=== PATIENT | female | born 1935 | race Caucasian/White ===

== ENCOUNTER → 2017-08-22 | Outpatient (CLI) | payer OTHER ==
[~2017-08-22] VITALS: Ht 162.6 cm; Wt 70.9 kg
[~2017-08-22] MED LIST: ALEVE220 MG PO; ANTIVERT12.5 MG PO; ASPIR 8181 MG PO; ASPIRIN81 M2 PO; B COMPLEX1 EAC1; CARDIZEM CD120 MG PO; CARDIZEM CD300 MG PO; CARTIA XT120 M1 PO; CENTRUM SILVER1 EAC4 PO; CRANBERRY500 MG PO; CRESTOR10 MG; FLEXERIL PO; GABAPENTIN 100100 MG PO; HYDROCHLOROTHIA25 M1 PO; HYDROCODON-ACE1 EACH PO; HYDROCODONE-AP1 EAC6 PO; LIPITOR20 MG PO; LIPITOR80 MG PO; LISINOPRIL20 MG PO; LISINOPRIL40 MG PO; MAGOX 400400 MG PO; MOBIC15 MG PO; NIACIN 100MG T100 M1 PO; PLAVIX 75 MG TA75 M1 PO; PRINIVIL20 MG PO; SYNTHROID100 MCG PO; SYNTHROID88 MCG PO; TUMS PO; VALACYCLOVIR500 MG PO; VALTREX 500 MG500 M1 PO; VITAMIN D400 UNIT PO; VITAMIN E400 UNIT PO; VOLTAREN GEL 1100 G1 TOP; ZETIA10 MG PO
--- NOTE | ~2017-08-22 | HPC ---
[facility] [address] [place] [place] [address] PAIN MANAGEMENT CONSULTATION Name: TENISHAHERBIE KEBEDELG ANN Room #: REG VIRGIL Temple#: [id number] Admission: 08/22/17 Attend Phys: Elkin Goode DO Discharge: Date of : 35 Report #: [id number] THIS REPORT FOR: //name// CC: Katherin Goode The patient is an 82-year-old female, last seen in pain clinic nearly 2 years ago, October of 2015. She was given epidural injections in 2010 and 2014. Last visit in 2015, we did not do an epidural injection as patient was on Plavix, status post CVA. Returns to pain clinic today with a new complaint. She was seen for approximately 30 minutes today. She notes that status post CVA she "bumps into things." She notes she has pain in the right shoulder, which is becoming more and more problematic. She states it has been present for about 3 months. It is worse with activity. She sleeps on the right side. This exacerbates this right shoulder pain. She has been using "icy hot" and Tylenol with some efficacy. 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 She notes pain is a 5 on a VAS, seems to be exacerbated with activity. Really does not radiate much below the forearm. REVIEW OF SYSTEMS: Gone over with the patient, medication list was reconciled. Again, history of CVA for which she takes Plavix, hypertension for which she takes Zestril and Cardizem, Zetia for dyslipidemia, Synthroid for hypothyroidism. PHYSICAL EXAMINATION: Reveals an 82-year-old female, BMI is 26.8 kilograms per meter squared. Vital signs stable as noted on the EMR. In the interval since we did last see her in 2015, she had right breast cancer, treated with a lumpectomy and 12 radiation therapies. Cervical range of motion is full. Upper extremity strength is diminished with pain, exacerbated with right triceps resistance. Pain with passive range of motion of the right shoulder. Hand grasp is symmetric. Deep tendon reflexes are preserved in the upper extremity. Heart is regular and rhythmical with a grade 2/6 systolic ejection murmur. No carotid bruits are noted. Tender over the AC joint. ASSESSMENT: Symptomatic degenerative joint disease, right shoulder. The patient with prior history of cerebrovascular accident, lumbar radiculopathy and sacroiliac mediated pain. RECOMMENDATIONS: 1. We will trial Voltaren gel topically for the right shoulder. 2. Follow up in 7 days for reevaluation. If this does not afford adequate relief, we will move forward with right shoulder injection under fluoroscopy. [address] [address] PAIN MANAGEMENT CONSULTATION Name: LG TREVINO Room #: REG VIRGIL Temple#: [id number] Admission: 08/22/17 Attend Phys: Elkin Goode DO Discharge: Date of : 35 Report #: [id number] We talked about risks, benefits of doing joint injections while anticoagulated, literature studies including [place] journal of medicine, September 2011, notes safety of arthrocentesis and joint injections and the patient is receiving anticoagulants at therapeutic levels. The patient was discharged in good and stable condition after approximately 30 minute visit, 50% of time spent counseling the patient. Follow up for right shoulder arthrocentesis and steroid injection under fluoroscopy if indicated. <ELECTRONICALLY SIGNED> By: Elkin Goode DO 08/24/17 1417 1630 2058 Elkin Goode DO /nt
[2017-08-22 10:25] VITALS: BP 125/78
== END ==
LOC: PAIN 06:57
DX: M18.0 Bilateral primary osteoarthritis of first carpometacarpal joints (principal); M19.011 Primary osteoarthritis, right shoulder

== ENCOUNTER → 2017-09-05 | Outpatient (CLI) | payer OTHER ==
[~2017-09-05] VITALS: Ht 162.6 cm; Wt 70.9 kg
--- NOTE | ~2017-09-05 | HPC ---
[facility] [place] [address] [place] [address] PAIN MANAGEMENT CONSULTATION Name: LG TREVINO ALIYAH Room #: REG VIRGIL Paolo.#: [id number] Admission: 09/05/17 Attend Phys: Yony Beltrán MD Discharge: Date of : 35 Report #: [id number] THIS REPORT FOR: //name// CC: Katherin Goode DO DATE OF SERVICE: 08/30/2017 DATE OF REGISTRATION: 08/30/2017 Followup visit for bilateral thumb pain and right shoulder pain. I am seeing the patient today in Dr. Goode's absence. He has the flu. She kept her appointment today for an anticipated shoulder injection that was discussed at her last visit. Dr. Goode on 08/22/2017 ordered x-rays of the right shoulder and bilateral thumbs to evaluate for DJD. Those films were reviewed with the patient, which show in deed that there are processes in the metacarpal carpal joints bilaterally consistent with her pain. She has osteophytes and sclerosis there. On that shoulder there is evidence of moderate degenerative changes of the acromioclavicular joint without bony abnormality. This is also consistent with a mild to moderate arthritis like condition. PQRS assessment is performed and it shows that she does indeed have arthropathy and arthritis as described. She is taking a low dose of opioid medication hydrocodone, which was provided for her by Dr. Goode and she is not requesting more of that today. Her maximum morphine mg equivalency per day does not exceed 15, a very low dose. She has hypertension, under treatment by her primary care physician and does not appear to be a fall risk. She does not smoke nor drink alcohol. PHYSICAL EXAMINATION: Reveals tenderness bilaterally at the metacarpal carpal joint of each thumb with palpable sclerosis. There is pain in the right shoulder with abduction, internal and external rotation. She cannot reach much more than about 6 inches above her head without increasing pain and impingement. Tenderness located there. IMPRESSION: 1. Osteoarthritis involving metacarpal carpal joints as well as evidence of interphalangeal joint narrowing and osteophyte in multiple joints. 2. Osteoarthritis, right shoulder. RECOMMENDATIONS: [facility] [address] [place] [address] PAIN MANAGEMENT CONSULTATION Name: LG TREVINO [facility] Room #: REG [facility] Maverick#: [id number] Admission: 09/05/17 Attend Phys: Yony Beltrán MD Discharge: Date of : 35 Report #: [id number] 1. Continue with Voltaren gel in both locations. 2. Shoulder injection. The patient was placed in sitting position, skin was prepped with ChloraPrep. A 25-gauge needle was gently advanced into the shoulder joint without resistance. After negative aspiration, I gently injected 4 mL of 0.5% bupivacaine mixed with 40 mg of triamcinolone. She tolerated the procedure well. She was observed for a short time. Due to her use of Plavix, there is some risk of bruising or bleeding. She is told to observe that and to any concerns come back to the clinic or call. Followup visit planned with Dr. Goode in his return to the office on an as needed basis for medication management. She may be a candidate for injection of the metacarpal carpal drugs as well. <ELECTRONICALLY SIGNED> By: Yony Beltrán MD 10/24/17 1408 1219 2206 Yony Beltrán MD /nt
[2017-09-05 11:17] VITALS: BP 140/76
== END | disposition home or self-care (01) ==
LOC: PAIN 06:50
DX: M19.011 Primary osteoarthritis, right shoulder (principal)

== ENCOUNTER → 2017-09-30 | Outpatient (CLI) | payer OTHER ==
[~2017-09-30] VITALS: Ht 165.1 cm; Wt 69.8 kg
--- NOTE | ~2017-09-30 | P ---
[facility] [place] [address] [place] [address] PROCEDURE REPORT Name: LG TREVINO ALIYAH Room #: REG [facility] M..#: [id number] Admission: 09/30/17 Attend Phys: Francis Call MD Discharge: Date of : 35 Report #: [id number] THIS REPORT FOR: //name// CC: Francis Sheikh MD BRIEF HISTORY: The patient is an 82-year-old woman with rectal bleeding and diarrhea earlier this year. POSTOPERATIVE DIAGNOSES: 1. Multiple colon polyps. 2. Diverticulosis coli, sigmoid colon. MEDICATIONS: Deep sedation with propofol per Anesthesia. SPECIMENS: 1. Ascending colon polyp. 2. Cecal polyps x 4. ESTIMATED BLOOD LOSS: 3 mL. PROCEDURE: Colonoscopy to cecum and terminal ileum with biopsy. FINDINGS: Prior to propofol sedation, procedure of upper endoscopy was discussed with the patient as well as potential risks and its complications. She indicates she understands and desires to proceed. DESCRIPTION OF PROCEDURE: With the patient in left lateral decubitus position, digital examination was completed which revealed no abnormalities. Subsequently, the Olympus video colonoscope was introduced in the rectum and advanced under direct vision to the cecum. Done with minimal difficulty. Cecum was identified by the ileocecal valve and appendiceal orifice. I was able to visualize the distal segment of terminal ileum, which was inspected and noted to be unremarkable. At that point, the scope was slowly withdrawn and careful circumferential views obtained including retroflex in the ascending colon. As we withdrew the scope, there were noted to be 4 diminutive polyps in the cecum, removed by biopsy. In the ascending colon, another diminutive polyp was seen and removed by biopsy. A small diverticulum was seen in the proximal colon. There was noted to be mild to moderate disease in the sigmoid colon. As we withdrew the scope, the prep was excellent. No additional polyps were seen. The mucosa was normal down to the rectum. No abnormalities were seen in the rectum. Upon retroflexion, no abnormalities were seen. Scope was withdrawn. The patient tolerated the procedure well. CONDITION OF THE PATIENT UPON DISCHARGE: Following procedure, the patient drowsy, aroused, conversant and will be discharged home when fully ambulatory. [facility] [address] [place] [address] PROCEDURE REPORT Name: LG TREVINO ALIYAH Room #: REG [facility]..#: [id number] Admission: 09/30/17 Attend Phys: Francis Call MD Discharge: Date of : 35 Report #: [id number] INSTRUCTIONS TO THE PATIENT AND FAMILY AT THE TIME OF DISCHARGE: Four small polyps were seen and removed as noted above. If three or more polyps are adenomatous, she may wish to consider followup colon exam in 3 years even at her current age. However, if only 1 or 2 are adenomas, then there is likely to be minimal benefit from continued routine surveillance. As far as recent rectal bleeding, no abnormalities were seen. I suspect she had a self-limited process, which had resolved. At this point, she is to follow up with Dr. Katherin Sheikh. Return to see me as needed. Withdrawal time from the cecum was approximately 11 minutes. <ELECTRONICALLY SIGNED> By: Francis Call MD 10/02/17 1408 1131 2113 Francis Call MD /nt
--- NOTE | ~2017-09-30 | P ---
[facility] [place] [address] [place] [address] PROCEDURE REPORT Name: LG TREVINO ALIYAH Room #: REG [facility] Paolo.#: [id number] Admission: 09/30/17 Attend Phys: Francis Call MD Discharge: Date of : 35 Report #: [id number] THIS REPORT FOR: //name// CC: Francis Sheikh BRIEF HISTORY: The patient is an 82-year-old woman with intermittent dysphagia for solids such as dry consistencies and bread. PREOPERATIVE DIAGNOSIS: Solid food dysphagia. POSTOPERATIVE DIAGNOSES: 1. Small hiatus hernia. 2. Intermittent solid food dysphagia. MEDICATIONS: Deep sedation with propofol per anesthesia. SPECIMEN: Biopsies of gastritis. ESTIMATED BLOOD LOSS: 3 mL. PROCEDURE: EGD with biopsy, Valentine dilation. FINDINGS: Prior to propofol sedation, procedure of upper endoscopy discussed with the patient of all potential risks and its complications. She indicates she understands and desires to proceed. DESCRIPTION OF PROCEDURE: With the patient in left lateral decubitus position, the Fuji video endoscope was inserted in the cervical esophagus under direct vision without difficulty. Examination of this organ throughout its entire length revealed normal esophageal mucosa. No ulcers or erosions were seen. There was no evidence of esophagitis or Rivera mucosa. A definite ring or stricture was not seen. A small hiatus hernia of no more than 2 cm was intermittently seen. Mucosa and hernia was normal. Scope was advanced in the stomach, was examined on end view as well as retroflexed views. There was a pattern of diffuse gastritis throughout the entire stomach with patchy erythema. No ulcers, erosions or bleeding lesions were seen. Upon retroflexion, no mass lesions were seen. The pylorus, duodenal bulb and postbulbar duodenal sweep were inspected and noted to be unremarkable. At that point, the scope was withdrawn and careful circumferential views confirmed the above findings. The patient tolerated the procedure well. Biopsies ____ gastritis. Due to symptoms of dysphagia, she was dilated with passage of 50-Croatian Valentine dilator. There was no resistance. CONDITION OF THE PATIENT UPON DISCHARGE: Following procedure, the patient [facility] [address] [place] [address] PROCEDURE REPORT Name: LG TREVINO [facility] Room #: REG [facility].#: [id number] Admission: 09/30/17 Attend Phys: Francis Call MD Discharge: Date of : 35 Report #: [id number] drowsy and prepared for colonoscopy. INSTRUCTIONS TO THE PATIENT AND FAMILY AT THE TIME OF DISCHARGE: I did not see definite stricturing. She is empirically dilated due to symptoms of dysphagia. She will return for dilation on an as needed basis. We will follow up on biopsy of the gastric mucosa and make further recommendations as needed. She will return to care of Dr. Katherin Sheikh. <ELECTRONICALLY SIGNED> By: Francis Call MD 10/02/17 1408 1100 2206 Francis Call MD /rney
--- NOTE | ~2017-09-30 | S ---
[facility] [address] [place] [address] SURGICAL PATH RPT PROCEDURE Name: KECIA TREVINO ALIYAH Room #: REG VIRGIL Boone.#: [id number] Admission: 09/30/17 Date of : 35 Discharge: Report #: [id number] Path Case #: [id number] PATHOLOGY REPORT COLLECTION DATE: 09/30/2017 RECEIVED DATE: 09/30/2017 SUBMITTING PHYS: Dr. Francis Call OTHER PHYS: Dr. Katehrin Sheikh SPECIMEN(S) RECEIVED: A.Gastric B.Ascending polyp C.Cecal polyp x4 * * * * * * * * * * * * FINAL DIAGNOSIS: A. "Gastric", biopsy: - Gastric mucosa with mild to moderate chronic active gastritis, mild activity. - No convincing H. pylori organisms identified by immunohistochemical stain (block A1); control reacted appropriately. - See comment. B. "Ascending polyp", biopsy: - Tubular adenoma; no high grade dysplasia. C. "Cecal polyp x 4", biopsy: - Tubular adenoma; no high grade dysplasia. (CLW:db; 10/03/2017) COMMENT: While the pattern of inflammation is suggestive of an H. pylori infection, no convincing organisms are identified on the immunohistochemical stain. Correlation with clinical history, endoscopic findings and potentially additional microbiology / laboratory data is recommended. PATHOLOGIST: Ondina Evangelista M.D. REPORT ELECTRONICALLY SIGNED BY: Ondina Evangelista M.D. DATE/TIME: 10/03/2017 22:27 * * * * * * * * * * * * GROSS PATHOLOGY: A. Received in formalin labeled "Kecia Trevino, gastric BX, rule out H. pylori," are 4 segments of rachel soft tissue measuring 1.5 x 1.0 x 0.3 cm in aggregate dimensions and ranging from 0.3 to 0.4 cm in maximum dimension. The specimen is submitted entirely in cassette A1. B. Received in formalin labeled "Kecia Trevino, polyp ascending [facility] [place] [address] SURGICAL PATH RPT PROCEDURE Name: KECIA TREVINO ALIYAH Room #: REG [facility]..#: [id number] Admission: 09/30/17 Date of : 35 Discharge: Report #: [id number] Path Case #: [id number] colon BX," is a segment of rachel soft tissue measuring 0.4 cm in maximum dimension. The specimen is submitted entirely in cassette B1. C. Received in formalin labeled "Kecia Trevino, cecal polyp BX 4," are 5 segments of rachel soft tissue measuring 1.6 x 1.3 x 0.3 cm in aggregate dimensions and ranging from 0.2 to 0.5 cm in maximum dimension. The specimen is submitted entirely in cassette C1. (TSD; 09/30/2017) CLINICAL HISTORY: Pre-OP DX: Dysphagia, rectal bleeding Post-OP DX: Gastritis, colon polyps INITIAL CPT CODE(S): A; 48661, 11982 B; 10125 C; 84570 Professional services performed by [facility] at [facility] [address], [place] [address] Technical services performed by [facility] at [address] [place] [address], [address], [place] [address]. [facility] [address] [place] [address] PHONE: [phone] DIRECTOR: Rene Delgado M.D. * * * END OF REPORT * * *
== END | disposition home or self-care (01) ==
LOC: GI 08:09
DX: D12.2 Benign neoplasm of ascending colon (principal); D12.0 Benign neoplasm of cecum; K57.30 Diverticulosis of large intestine without perforation or abscess without bleeding; K29.50 Unspecified chronic gastritis without bleeding; R13.12 Dysphagia, oropharyngeal phase; K44.9 Diaphragmatic hernia without obstruction or gangrene; I10 Essential (primary) hypertension; E03.9 Hypothyroidism, unspecified; K21.9 Gastro-esophageal reflux disease without esophagitis; Z85.3 Personal history of malignant neoplasm of breast; Z85.850 Personal history of malignant neoplasm of thyroid; Z90.710 Acquired absence of both cervix and uterus; Z90.49 Acquired absence of other specified parts of digestive tract; Z98.890 Other specified postprocedural states; Z86.73 Personal history of transient ischemic attack (TIA), and cerebral infarction without residual deficits; Z79.82 Long term (current) use of aspirin; Z88.2 Allergy status to sulfonamides; Z88.8 Allergy status to other drugs, medicaments and biological substances
CPT/HCPCS: 62110; 62900

== ENCOUNTER 2018-09-14 11:20 | Emergency (ER) | payer OTHER ==
[~2018-09-14] VITALS: Ht 160 cm; Wt 68.0 kg
[2018-09-14 11:38] LABS: POC CA IONIZED 4.8 mg/dL (4.5-5.3); POC CREATININE 1.1 mg/dL (0.6-1.3); POC HEMOGLOBIN 13.9 g/dL (12.0-15.0); POC POTASSIUM 4.2 mmol/L (3.5-5.1)
[2018-09-14 11:44] LABS: ABSOLUTE NEUTROPHILS 5.1 thou/uL (1.4-8.2); BASOPHILS 0.7 % (0.0-2.0); EOSINOPHILS 1.7 % (0.0-3.0); HEMATOCRIT 40.5 % (37.0-47.0); HEMOGLOBIN 13.9 gm/dL (12.0-15.0); LYMPHOCYTES 33.1 % (24.0-44.0); MCH 31.8 pg (26.0-34.0); MCHC 34.2 g/dL (28.0-37.0); MCV 92.9 fL (80.0-100.0); MONOCYTES 10.3 % (1.0-8.0); PLATELET COUNT 234 thou/uL (150-400); POLYS 54.2 % (36.0-66.0); RBC 4.36 mil/uL (4.20-5.00); RDW 13.6 % (10.5-14.5); WBC 9.4 thou/uL (4.0-11.0)
[2018-09-14] MEDS ORDERED: ESTRADIOL 1 MG T1 M1 PO (11:46)
[2018-09-14 11:51] LABS: INR 1.1; PROTIME 11.4 Seconds (9.3-11.4)
[2018-09-14 11:56] LABS: ANION GAP 11 mmol/L (7-16); BUN 13 mg/dL (7-18); CALCIUM 9.5 mg/dL (8.5-10.1); CHLORIDE 101 mmol/L (98-107); CO2 28 mmol/L (21-32); CREATININE 1.1 mg/dL (0.6-1.0); GLUCOSE 126 mg/dL (74-106); POTASSIUM 4.1 mmol/L (3.5-5.1); SODIUM 140 mmol/L (136-145)
[2018-09-14 12:05] LABS: TROPONIN-I <0.06 ng/mL (<0.06)
[2018-09-14 13:43] VITALS: BP 146/70
[2018-09-14] MEDS ORDERED: CARTIA XT120 M1 PO (14:07)
[2018-09-14] MEDS ORDERED: CO Q-10100 MG PO (14:08)
[2018-09-14] MEDS ORDERED: FLAXSEED OIL1000 MG PO (14:08)
--- NOTE | 2018-09-15 10:42 | EKG ---
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: : 1935 Requested By: Mali Quijano Order Number: [id number] MD: Teddy Nunez Measurements Intervals [place] Rate: 59 P: 66 [place]: 178 QRS: 34 QRSD: 103 T: 59 QT: 452 QTc: 448 Interpretive Statements Sinus rhythm RSR' in V1 or V2, probably normal variant Early transition Nonspecific ST-T wave changes Compared to ECG 07/25/2015 06:25:55 no significant changes Electronically Signed On 09-15-2018 10:42:18 SALES PROJECT ENGINEER by Teddy Nunez [email or web address] ��������������������������������������������� <ELECTRONICALLY SIGNED> ���������������������������������������� By: Teddy Nunez MD ��������������������������������������������� 09/15/18 1042 1117 111 Teddy Nunez MD /EPI
== END 2018-09-14 14:22 | disposition home or self-care (01) ==
LOC: ER 11:20
PROVIDERS: Student in an Organized Health Care Education/Training Program
DX: R55 Syncope and collapse (principal); I10 Essential (primary) hypertension; K21.9 Gastro-esophageal reflux disease without esophagitis; E78.5 Hyperlipidemia, unspecified; Z85.3 Personal history of malignant neoplasm of breast; Z90.49 Acquired absence of other specified parts of digestive tract; Z90.710 Acquired absence of both cervix and uterus; E89.0 Postprocedural hypothyroidism; Z88.1 Allergy status to other antibiotic agents; Z88.2 Allergy status to sulfonamides

== ENCOUNTER → 2018-11-02 | Outpatient (CLI) | payer OTHER ==
[~2018-11-02] MED LIST changes: +CO Q-10100 MG PO; +ESTRADIOL 1 MG T1 M1 PO; +FLAXSEED OIL1000 MG PO
--- NOTE | 2018-11-02 09:09 | 2DMMODE ---
[facility] [place] [address] 2 D/M-MODE ECHOCARDIOGRAM Name: LG TREVINO ALIYAH Room #: REG [facility]#: [id number] ������������� Admission: 11/02/18 ������������� Attend Phys: Sinan Morley MD Discharge: ��� ������������� ��� Date of : 35 Date of Service: 11/02/18 0909 �� Report #: [id number] �������� ��������������������������������������������[id number] THIS REPORT FOR: //name// APPROVED REPORT Study performed: 11/02/2018 07:59:33 EXAM: Comprehensive 2D, Doppler, and color-flow Echocardiogram Patient Location: Out-Patient Status: routine BSA: 1.75 HR: 75 bpm BP: 132/75 mmHg Rhythm: NSR Other Information Study Quality: Good Indications Syncope Hypertension/HDD 2D Dimensions RVDd: 24.51 mm IVSd: 13.59 (7-11mm) LVOT Diam: 17.53 (18-24mm) LVDd: 29.68 mm PWd: 11.62 (7-11mm) Ascending Ao: 31.88 (22-36mm) LVDs: 19.58 (25-40mm) Aortic Root: 28.28 mm IVC: 19.00 mm Volumes Left Atrial Volume (Systole) Single Plane 4CH: 26.97 mL Single Plane 2CH: 35.84 mL LA ESV Index: 19.00 mL/m2 Aortic Valve AoV Peak Live.: 1.46 m/s AO Peak Gr.: 9.39 mmHg LVOT Max P.75 mmHg LVOT Max V: 1.30 m/s MARA Vmax: 2.15 cm2 AI Vmax: 3.87 m/s AI [place]: 1.94 m/s2 AI PHT: 589.40 ms [facility] [address] [place] [address] 2 D/M-MODE ECHOCARDIOGRAM Name: LG TREVINO BANNER Room #: REG [facility].#: [id number] ������������� Admission: 11/02/18 ������������� Attend Phys: Sinan Morley MD Discharge: ��� ������������� ��� Date of : 35 Date of Service: 11/02/18 0909 �� Report #: [id number] �������� ��������������������������������������������[id number] Mitral Valve E/A Ratio: 0.7 MV Decel. Time: 233.24 ms MV E Max Live.: 0.83 m/s MV A Live.: 1.13 m/s MV PHT: 67.64 ms IVRT: 133.79 ms Pulmonary Valve PV Peak Live.: 1.05 m/s PV Peak Gr.: 4.41 mmHg Pulmonary Vein P Vein S: 0.56 m/s P Vein A: 0.23 m/s P Vein D: 0.41 m/s P Vein A Dur.: 110.7 msec P Vein S/D Ratio: 1.37 Tricuspid Valve TR Peak Live.: 2.46 m/s RAP Estimate: 5.00 mmHg TR Peak Gr.: 24.26 mmHg PA Pressure: 29.00 mmHg Left Ventricle The left ventricle is normal size. Mild concentric left ventricular hypertrophy. The left ventricular systolic function is normal. The left ventricular ejection fraction is within the normal range. LVEF is 60-65%. Mild diastolic dysfunction is present (impaired relaxation pattern). Right Ventricle The right ventricle is normal size. The right ventricular systolic function is normal. Atria The left atrium size is normal. The right atrium size is normal. Aortic Valve Aortic valve is mildly calcified. Mild aortic regurgitation. There is no aortic valvular stenosis. Mitral Valve Mild mitral annular calcification. Mitral valve leaflets are mildly thickened. Mild mitral regurgitation. No evidence of mitral valve stenosis. Tricuspid Valve [facility] [address] [place] [address] 2 D/M-MODE ECHOCARDIOGRAM Name: LG TREVINO BANNER [facility] [id number] ������������� Admission: 11/02/18 ������������� Attend Phys: Sinan Morley MD Discharge: ��� ������������� ��� Date of : 35 Date of Service: 11/02/18 0909 �� Report #: [id number] �������� ��������������������������������������������[id number] The tricuspid valve is normal in structure. Mild tricuspid regurgitation. PAP is estimated at 29 mmHg. Pulmonic Valve Pulmonic valve is not well visualized. Great Vessels The aortic root is normal in size. The ascending aorta is normal in size. IVC is normal in size and collapses >50% with inspiration. Pericardium There is no pericardial effusion. <Conclusion> The left ventricle is normal size. Mild concentric left ventricular hypertrophy. The left ventricular systolic function is normal. Mild diastolic dysfunction is present (impaired relaxation pattern). The right ventricle is normal size. The left atrium size is normal. Aortic valve is mildly calcified. Mild aortic regurgitation. Mild mitral annular calcification. Mitral valve leaflets are mildly thickened. Mild mitral regurgitation. Mild tricuspid regurgitation. PAP is estimated at 29 mmHg. ��������������������������������������������� <ELECTRONICALLY SIGNED> ���������������������������������������� By: Sinan Morley MD ��������������������������������������������� 11/02/18908 8 8 Sinan Morley MD /INF
== END ==
LOC: CV 07:40
DX: I08.3 Combined rheumatic disorders of mitral, aortic and tricuspid valves (principal); E78.5 Hyperlipidemia, unspecified; I10 Essential (primary) hypertension; Z88.1 Allergy status to other antibiotic agents; Z88.2 Allergy status to sulfonamides; Z91.09 Other allergy status, other than to drugs and biological substances; Z79.899 Other long term (current) drug therapy

== ENCOUNTER 2019-01-29 08:35 | Emergency (ER) | payer OTHER ==
[~2019-01-29] VITALS: Ht 165.1 cm; Wt 69.8 kg
[2019-01-29 09:23] LABS: ANION GAP 11 mmol/L (7-16); BUN 16 mg/dL (7-18); CALCIUM 9.4 mg/dL (8.5-10.1); CHLORIDE 102 mmol/L (98-107); CO2 25 mmol/L (21-32); CREATININE 1.1 mg/dL (0.6-1.0); GLUCOSE 136 mg/dL (74-106); POTASSIUM 4.4 mmol/L (3.5-5.1)
[2019-01-29 09:34] LABS: ALBUMIN 3.8 g/dL (3.4-5.0); LIPASE 120 U/L (73-393); MAGNESIUM 2.3 mg/dL (1.8-2.4); SGOT 31 U/L (15-37); SGPT 25 U/L (30-65); TOTAL BILIRUBIN 0.8 mg/dL (<0.1-1.0); TOTAL PROTEIN 7.7 g/dL (6.4-8.2); TROPONIN-I <0.06 ng/mL (<0.06)
[2019-01-29 09:35] LABS: SODIUM 138 mmol/L (136-145)
[2019-01-29 10:32] LABS: ABSOLUTE NEUTROPHILS 8.6 thou/uL (1.4-8.2); BASOPHILS 0.6 % (0.0-2.0); EOSINOPHILS 0.7 % (0.0-3.0); HEMATOCRIT 40.4 % (37.0-47.0); HEMOGLOBIN 13.4 gm/dL (12.0-15.0); LYMPHOCYTES 12.9 % (24.0-44.0); MCH 30.6 pg (26.0-34.0); MCHC 33.3 g/dL (28.0-37.0); MONOCYTES 8.3 % (1.0-8.0); PLATELET COUNT 202 thou/uL (150-400); POLYS 77.5 % (36.0-66.0); RBC 4.38 mil/uL (4.20-5.00); RDW 13.8 % (10.5-14.5); WBC 11.1 thou/uL (4.0-11.0)
[2019-01-29] MEDS ORDERED: ONDANSETRON ODT8 MG PO (11:05)
[2019-01-29 11:24] VITALS: BP 139/61
[2019-01-29 11:43] LABS: URINE BILIRUBIN NEGATIVE (Negative); URINE BLOOD NEGATIVE (Negative); URINE CLARITY CLEAR; URINE COLOR YELLOW; URINE GLUCOSE-RANDOM* NEGATIVE (Negative); URINE KETONES NEGATIVE (Negative); URINE NITRITE-REFLEX NEGATIVE (Negative); URINE PROTEIN (DIPSTICK) NEGATIVE (Negative); URINE UROBILINOGEN 0.2 E.U./dl (0.2-1.0)
[2019-01-29 11:44] LABS: URINE LEUKOCYTES-REFLEX 1+ (Negative)
[2019-01-29 11:55] LABS: AMORPHOUS URATES Moderate /LPF (None Seen); CASTS None Seen /LPF (None Seen); URINE WBC-REFLEX 6-15 Few /HPF (0-5)
[2019-01-29 11:56] LABS: BACTERIA-REFLEX 1-9 Few /HPF (None Seen); CRYSTALS None Seen /LPF (None Seen); URINE RBC None Seen /HPF (0-2)
[2019-01-29 12:05] LABS: SQUAMOUS 4-10 Moderate /LPF (0-3)
--- NOTE | 2019-01-29 12:15 | EKG ---
[place] [address] [facility] [place] [address] ELECTROCARDIOGRAM REPORT Name: ANJALI TREVINO Room #: DEP [place]ver[place]#: [id number] ������������������ Admission: 01/29/19 ������������������ Attend Phys: Discharge: 01/29/19 ������������������ Date of : 35 Report #: [id number] ����������������������������������������������������������������� [id number] THIS REPORT FOR: //name// [facility] ED Test Date: 2019-01-29 Test Time: 08:50:48 Pat Name: ANJALI TREVINO Department: Room: Gender: F Speech Communication Instructor: kf : 1935 Requested By: Anatoliy Queen Order Number: [id number] MD: Devyn Pittman Measurements Intervals [place] Rate: 59 P: 52 [place]: 176 QRS: 13 QRSD: 103 T: 56 QT: 459 QTc: 455 Interpretive Statements Sinus rhythm RSR' in V1 or V2, probably normal variant Compared to ECG 09/14/2018 11:17:55 No significant changes Electronically Signed On 01-29-2019 12:15:24 CDT by Devyn Pittman [email or web address] ��������������������������������������������� <ELECTRONICALLY SIGNED> ���������������������������������������� By: Devyn Pittman MD ��������������������������������������������� 01/29/19 1215 0850 0850 MD STEVEN Guillaume
== END 2019-01-29 11:31 | disposition home or self-care (01) ==
LOC: ER 08:35
PROVIDERS: Emergency Medicine
DX: R42 Dizziness and giddiness (principal); R55 Syncope and collapse; R19.7 Diarrhea, unspecified; R11.2 Nausea with vomiting, unspecified; I10 Essential (primary) hypertension; K21.9 Gastro-esophageal reflux disease without esophagitis; E03.9 Hypothyroidism, unspecified; E78.5 Hyperlipidemia, unspecified; Z88.2 Allergy status to sulfonamides; Z91.048 Other nonmedicinal substance allergy status; Z88.1 Allergy status to other antibiotic agents; Z90.11 Acquired absence of right breast and nipple; Z85.3 Personal history of malignant neoplasm of breast; Z98.890 Other specified postprocedural states; Z90.710 Acquired absence of both cervix and uterus; Z90.49 Acquired absence of other specified parts of digestive tract

== ENCOUNTER → 2019-11-26 | Outpatient (CLI) | payer OTHER ==
[~2019-11-26] MED LIST changes: +ONDANSETRON ODT8 MG PO
== END ==
LOC: SJCVC 10:09
PROVIDERS: ATTEND Internal Medicine Cardiovascular Disease
DX: I45.10 Unspecified right bundle-branch block (principal); R55 Syncope and collapse; I10 Essential (primary) hypertension; E78.00 Pure hypercholesterolemia, unspecified; I63.9 Cerebral infarction, unspecified; K21.9 Gastro-esophageal reflux disease without esophagitis; E78.5 Hyperlipidemia, unspecified; Z86.73 Personal history of transient ischemic attack (TIA), and cerebral infarction without residual deficits; Z82.49 Family history of ischemic heart disease and other diseases of the circulatory system; Z79.899 Other long term (current) drug therapy; Z79.82 Long term (current) use of aspirin

== ENCOUNTER → 2020-11-25 | Outpatient (CLI) | payer OTHER | LOC: SJCVCIMAG 09:43 | PROVIDERS: ATTEND Internal Medicine Cardiovascular Disease | DX: I08.3 Combined rheumatic disorders of mitral, aortic and tricuspid valves (principal); R55 Syncope and collapse; I10 Essential (primary) hypertension; I44.0 Atrioventricular block, first degree; E78.00 Pure hypercholesterolemia, unspecified; R60.9 Edema, unspecified; K21.9 Gastro-esophageal reflux disease without esophagitis; Z90.49 Acquired absence of other specified parts of digestive tract; Z90.710 Acquired absence of both cervix and uterus; Z88.8 Allergy status to other drugs, medicaments and biological substances; Z79.82 Long term (current) use of aspirin; Z79.899 Other long term (current) drug therapy ==

== ENCOUNTER → 2021-05-13 | Outpatient (CLI) | payer OTHER ==
[~2021-05-13] MED LIST changes: +CLOPIDOGREL75 MG PO; +FUROSEMIDE 20 M20 MG PO; +TRAZODONE HCL50 MG PO; +XARELTO20 MG PO
== END ==
LOC: SJCVC 09:27
PROVIDERS: ATTEND Internal Medicine Cardiovascular Disease
DX: I48.91 Unspecified atrial fibrillation (principal); J90 Pleural effusion, not elsewhere classified; I50.9 Heart failure, unspecified; I11.0 Hypertensive heart disease with heart failure; E78.00 Pure hypercholesterolemia, unspecified; K21.9 Gastro-esophageal reflux disease without esophagitis; E03.9 Hypothyroidism, unspecified; Z88.5 Allergy status to narcotic agent; Z88.8 Allergy status to other drugs, medicaments and biological substances; Z88.1 Allergy status to other antibiotic agents; Z79.899 Other long term (current) drug therapy

== ENCOUNTER 2021-05-14 11:51 | Inpatient (IN) | payer OTHER ==
[~2021-05-14] VITALS: Ht 165.1 cm; Wt 66.7 kg
[~2021-05-14 11:51] MED LIST changes: -CLOPIDOGREL75 MG PO; -FUROSEMIDE 20 M20 MG PO; -TRAZODONE HCL50 MG PO; -XARELTO20 MG PO
[2021-05-14 11:56] VITALS: BP 113/78
[2021-05-14 12:37] LABS: ABSOLUTE NEUTROPHILS 5.5 thou/uL (1.4-8.2); BASOPHILS 0.6 % (0.0-2.0); EOSINOPHILS 1.3 % (0.0-3.0); HEMATOCRIT 41.8 % (37.0-47.0); HEMOGLOBIN 13.6 gm/dL (12.0-15.0); LYMPHOCYTES 15.6 % (24.0-44.0); MCH 30.7 pg (26.0-34.0); MCHC 32.5 g/dL (28.0-37.0); MCV 94.4 fL (80.0-100.0); MONOCYTES 8.1 % (1.0-8.0); PLATELET COUNT 277 thou/uL (150-400); POLYS 74.4 % (36.0-66.0); RBC 4.43 mil/uL (4.20-5.00); RDW 14.5 % (10.5-14.5); WBC 7.4 thou/uL (4.0-11.0)
[2021-05-14 12:51] LABS: CALCIUM 8.7 mg/dL (8.5-10.1); CREATININE 1.1 mg/dL (0.6-1.0)
[2021-05-14 12:53] LABS: POTASSIUM 4.5 mmol/L (3.5-5.1)
[2021-05-14 13:02] LABS: ALBUMIN 3.6 g/dL (3.4-5.0); TOTAL BILIRUBIN 1.5 mg/dL (0.2-1.0); TOTAL PROTEIN 7.7 g/dL (6.4-8.2)
[2021-05-14 14:43] VITALS: BP 121/73
[2021-05-14] MEDS ORDERED: CLOPIDOGREL75 MG PO (14:47)
[2021-05-14] MEDS ORDERED: TRAZODONE HCL50 MG PO (14:47)
--- NOTE | 2021-05-14 15:47 | EKG ---
[place] [address] [facility] [place] [address] ELECTROCARDIOGRAM REPORT Name: ANJALI TREVINO Room #: 170-8 ADM IN M.R.#: [id number] Admission: 05/14/21 Attend Phys: Beto Downs MD Discharge: Date of : 35 Report #: [id number] [facility] ED Test Date: 2021-05-14 Test Time: 12:03:52 Pat Name: ANJALI TREVINO Department: Room: 170 Gender: F Hot Header Operator: MAIKEL : 1935 Requested By: Cait Phelps Order Number: [id number] MD: Jeff Suh Measurements Intervals [place] Rate: 127 P: ID: QRS: 9 QRSD: 88 T: 60 QT: 349 QTc: 508 Interpretive Statements Atrial fibrillation RSR' in V1 or V2, probably normal variant Prolonged QT interval Compared to ECG 01/29/2019 08:50:48 Sinus rhythm no longer present Electronically Signed On 05-14-2021 15:47:25 CDT by Jeff Suh [email or web address] <ELECTRONICALLY SIGNED> By: Jeff Suh MD, [facility] 05/14/21 1547 1203 1203 Jeff Suh MD, FACC /EPI
[2021-05-14 16:29] LABS: FOLIC ACID 54.6 ng/mL (8.6-58.9)
[2021-05-14] MEDS ORDERED: XARELTO20 MG PO (16:57)
[2021-05-14] MEDS ORDERED: FUROSEMIDE 20 M20 MG PO (16:58)
[2021-05-14 19:31] VITALS: BP 122/83
[2021-05-14 20:25] VITALS: BP 111/54
[2021-05-14 20:30] VITALS: BP 114/64
[2021-05-14 22:00] VITALS: BP 109/60
[2021-05-15 00:01] VITALS: BP 111/68
--- NOTE | 2021-05-15 02:03 | NUR ---
PT ADMITTED FROM ER AROUND 2014, ALERT AND ORIENTED, DENIES CP OR SOA, AFIB ON TELE WITH HR IN THE 70S, CARDIZEM TITRATED TO 5ML/HR, ORDERS NOTED FOR THE ONETIME DOSE OF CARDIZEM, FINISH CARPENTER NOTIFIED, ORDERS RECEIVED TO CONTINUE CARDIZEM, BP STABLE, PT 02SATS IN THE UPPER 80, ON RA, PT PUT ON 2L NC, TYL GIVEN FOR L. SHOULDER PAIN WITH RELIEVE, ADMISSION ASSESSMENT, EDUCATIONA AND HX COMPLETED, NO DISTRESS AT THIS TIME, WILL CONTINUE TO MONITOR HR AND BP PER POC
[2021-05-15 03:36] VITALS: BP 137/71
[2021-05-15 05:09] LABS: ABSOLUTE NEUTROPHILS 5.9 thou/uL (1.4-8.2); BASOPHILS 0.3 % (0.0-2.0); EOSINOPHILS 1.6 % (0.0-3.0); HEMATOCRIT 34.2 % (37.0-47.0); LYMPHOCYTES 19.8 % (24.0-44.0); MCHC 32.3 g/dL (28.0-37.0); MONOCYTES 9.9 % (1.0-8.0); PLATELET COUNT 254 thou/uL (150-400); POLYS 68.4 % (36.0-66.0); RBC 3.95 mil/uL (4.20-5.00); RDW 14.6 % (10.5-14.5); WBC 8.7 thou/uL (4.0-11.0)
[2021-05-15 05:17] LABS: HEMOGLOBIN 11.1 gm/dL (12.0-15.0)
[2021-05-15 05:18] LABS: MCV 86.5 fL (80.0-100.0)
[2021-05-15 07:11] VITALS: BP 126/64
[2021-05-15 08:19] LABS: CALCIUM 8.9 mg/dL (8.5-10.1); CREATININE 1.2 mg/dL (0.6-1.0); POTASSIUM 3.8 mmol/L (3.5-5.1)
[2021-05-15 11:40] VITALS: BP 90/50
--- NOTE | 2021-05-15 12:17 | 2DMMODE ---
[facility] [place] [address] 2 D/M-MODE ECHOCARDIOGRAM Name: LG TREVINO Room #: 211-P ADM IN M.R.#: [id number] Admission: 05/14/21 Attend Phys: Beto Downs MD Discharge: Date of : 35 Report #: [id number] THIS REPORT FOR: cc: Katherin Sheikh MD, Michelle R. MD Park, Jin S. MD ~ APPROVED REPORT Study performed: 05/15/2021 10:30:01 EXAM: Comprehensive 2D, Doppler, and color-flow Echocardiogram Patient Location: Bedside Room #: 211 Status: routine BSA: 1.77 HR: 104 bpm BP: 126/64 mmHg Rhythm: Atrial Fibrillation Other Information Study Quality: Good Indications Congestive Heart Failure Atrial Fibrillation Hypertension/HDD 2D Dimensions RVDd: 37.11 mm IVSd: 12.33 (7-11mm) LVOT Diam: 16.30 (18-24mm) LVDd: 33.40 mm PWd: 11.58 (7-11mm) Ascending Ao: 28.22 (22-36mm) LVDs: 23.31 (25-40mm) Left Atrium: 30.31 (27-40mm) Aortic Root: 27.63 mm IVC: 22.00 mm Volumes Left Atrial Volume (Systole) Single Plane 4CH: 58.57 mL Single Plane 2CH: 53.69 mL LA ESV Index: 35.00 mL/m2 Aortic Valve AoV Peak Live.: 1.46 m/s AO Peak Gr.: 8.57 mmHg LVOT Max P.06 mmHg [facility] [address] [place] [address] 2 D/M-MODE ECHOCARDIOGRAM Name: LG TREVINO Room #: 211-P [facility]#: [id number] Admission: 05/14/21 Attend Phys: Beto Downs MD Discharge: Date of : 35 Report #: [id number] LVOT Max V: 1.01 m/s MARA Vmax: 1.44 cm2 Pulmonary Valve PV Peak Live.: 0.91 m/s PV Peak Gr.: 3.29 mmHg Tricuspid Valve TR Peak Live.: 2.65 m/s TR Peak Gr.: 28.05 mmHg PA Pressure: 38.00 mmHg Left Ventricle The left ventricle is normal size. Mild concentric left ventricular hypertrophy. The left ventricular systolic function is normal. The left ventricular ejection fraction is within the normal range. LVEF is 55%. This study is not technically sufficient to allow evaluation of the LV diastolic function due to atrial fibrillation. Right Ventricle The right ventricle is normal size. The right ventricular systolic function is normal. Atria Left atrium is dilated. Right atrium is dilated. Aortic Valve The aortic valve is normal in structure. The Aortic valve is sclerotic. Mild aortic regurgitation. There is no aortic valvular stenosis. Mitral Valve The mitral valve is normal in structure. There is mitral annular calcification. Mild to moderate mitral regurgitation. No evidence of mitral valve stenosis. Tricuspid Valve The tricuspid valve is normal in structure. There is mild to moderate tricuspid regurgitation.Estimated PAP 34 mmHg. There is mild pulmonary hypertension. Pulmonic Valve The pulmonary valve is normal in structure. Trace pulmonic regurgitation. Great Vessels The aortic root is normal in size. IVC is dilated and collapses [facility] [address] [place] [address] 2 D/M-MODE ECHOCARDIOGRAM Name: LG TREVINO Room #: [facility] ADM IN M.R.#: [id number] Admission: 05/14/21 Attend Phys: Beto Downs MD Discharge: Date of : 35 Report #: [id number] <50% with inspiration. Pericardium There is no pericardial effusion. <Conclusion> The left ventricle is normal size. Mild concentric left ventricular hypertrophy. The left ventricular systolic function is normal. The right ventricle is normal size. Left atrium is dilated. Right atrium is dilated. Mild aortic regurgitation. Mild to moderate mitral regurgitation. There is mild to moderate tricuspid regurgitation.Estimated PAP 34 mmHg. <ELECTRONICALLY SIGNED> By: Sinan Morley MD 05/15/21 1217 16 1217 Sinan Morley MD /INF
[2021-05-15 14:33] LABS: APTT 28.1 Seconds (24.5-32.8); INR 1.26; PROTIME 13.6 Seconds (10.5-12.1)
--- NOTE | 2021-05-15 15:46 | NUR ---
Case opened to follow for dc planning. Pt admitted with newly dx AFIB and being treated for CHF as well. Pt on cardezem gtt with improved heart rate. Pt currently on 2lnc o2 but does not have it at home. The pt lives at home with her spouse and son. She has hx of cva but functions independently and drives. She uses her rollator walker when outside the home. No assistive device inside. She has a split level home with four steps to enter and 6 up to main living and 6 up to bedroom/bath. Her pcp is Dr. Katherin Sheikh. PT/OT evaluations today with recommendations for possible hh referral pending her progress. No weekend dc anticipated. Will reassess for hh referral and home o2 early next week.
[2021-05-15 16:57] LABS: BF NUCLEATED CELLS 471 /mm3; BF RBC 634 /mm3
[2021-05-15 17:17] LABS: CLARITY CLEAR; COLOR YELLOW; TOTAL VOLUME 60 mL
--- NOTE | 2021-05-15 19:02 | NUR ---
PATIENT IS A/OX4 ABLE TO MAKE NEEDS KNOWN. VSS AFEBRILE. C/O SHOULDER PAIN WHICH IS WELL MANAGED WITH TYLENOL. AFIB ON MONITOR. CARDIZEM DRIP DC THIS AFTERNOON. THORACENTESIS THIS AFTERNOON WITH OUT DIFFICULTY. PT/OT EVALUATED
[2021-05-15 19:46] VITALS: BP 1001/75
[2021-05-15 20:41] LABS: BF NEUTROPHILS 7 %; SOURCE THORACENTESIS
[2021-05-15 20:42] LABS: BF MACROPHAGE 7 %
[2021-05-16 02:13] LABS: CALCIUM 8.9 mg/dL (8.5-10.1); CREATININE 1.4 mg/dL (0.6-1.0); POTASSIUM 3.6 mmol/L (3.5-5.1)
--- NOTE | 2021-05-16 04:47 | NUR ---
RECEIVED PATIENT AT 1900H.PATIENT IS ALERT AND ORIENTED X4.NO COMPLIANS OF PAIN.NOT IN DISTRESS.STILL AFIB ON THE MONITOR, RATE IS FLUCTUATING BUT MOSTLY LESS THAN 100.NO COMPLAINS OF PAIN.NOT IN DISTRESS.ALL NEEDS ATTENDED.TO CONTINOUSLY MONITOR.
[2021-05-16 05:21] VITALS: BP 96/52
[2021-05-16 08:10] LABS: SOURCE THORACENTESIS
[2021-05-16 09:38] VITALS: BP 117/65
[2021-05-16 13:02] VITALS: BP 103/75
[2021-05-16 16:00] VITALS: BP 117/44
[2021-05-16 20:03] VITALS: BP 117/62
[2021-05-16 23:48] VITALS: BP 114/74
[2021-05-17] VITALS (7 sets, daily range): BP systolic 103–135; BP diastolic 46–78
--- NOTE | 2021-05-17 07:35 | NUR ---
RECEIVED THE PATIENT AT 1900H.PATIENT IS ALERT AND ORIENTED X4.ON ROOM AIR BREATHING SPONTANEOUSLY.WITH ONGOING AMIODARONE DRIP ORDERED.AT 0415H AM, PATIENT WENT TO COMMODE TO URINATE, PATIENT FELT LIGHTHEADED, PER THE DIRECTOR OF INSTRUCTIONAL TECHNOLOGY WHO ASSISTED THE PATIENT, PATIENT WAS NOT RESPONDING TO HER.HR WAS ON THE 30'S ON THE MONITOR.UPON ARRIVAL TO THE PATIENT'S ROOM, WE PLACED PATIENT BACK ON THE BED AND PATIENT WAS ALREADY RESPONDING WITH GOOD PULSES.TURNED OFF AMIODARONE PER ER DOCTOR AND REGULATORY INTERN DUE TO BRADYCARDIA EPISODE.VITALS CHECKED AFTER THE EPISODE AND WAS WITHIN NORMAL RANGE.KEPT PATIENT IN THE BED.FALL PREVENTION MEASURES MAINTAINED.
--- NOTE | 2021-05-18 03:50 | NUR ---
PT HAS BEEN SLEEPING MOST OF THE NIGHT. RESPIRATIONS EVEN AND UNLABORED. SHE DENIED ANY PAIN OR SOA. AFIB WITH HR 70S-80S MOST OF THE SHIFT. FALL PRECAUTIONS IN PLACE. PROGRESSING TOWARD POC GOALS. WILL MONITOR FURTHER.
[2021-05-18 04:44] VITALS: BP 98/55
--- NOTE | 2021-05-18 07:27 | EKG ---
[address] [employer] [address] ELECTROCARDIOGRAM REPORT Name: LG TREVINO Room #: 211-P ADM IN M.R.#: [id number] Admission: 05/14/21 Attend Phys: Beto Downs MD Discharge: Date of : 35 Report #: [id number] [facility] Test Date: 2021-05-17 Test Time: 08:33:03 Pat Name: LG TREVINO Department: Room: 211 P Gender: F Hospitality Manager: JEfrain : 1935 Requested By: Izabela Calloway Order Number: [id number] MD: Jeff Suh Measurements Intervals [place] Rate: 76 P: NV: QRS: -1 QRSD: 89 T: 212 QT: 363 QTc: 409 Interpretive Statements Atrial fibrillation Repol abnrm suggests ischemia, diffuse leads Compared to ECG 05/14/2021 12:03:52 Early repolarization now present Possible ischemia now present Prolonged QT interval no longer present Electronically Signed On 05-18-2021 7:27:26 CDT by Jeff Suh [email or web address] <ELECTRONICALLY SIGNED> By: Jeff Suh MD, [facility] 05/18/21726 2 2 Jeff Suh MD, [facility] /EPI
[2021-05-18 08:30] VITALS: BP 125/74
[2021-05-18 09:39] LABS: CALCIUM 9.1 mg/dL (8.5-10.1); POTASSIUM 3.9 mmol/L (3.5-5.1)
[2021-05-18 12:05] VITALS: BP 104/61
[2021-05-18 14:07] LABS: BODY FLUID ALBUMIN 1.6 g/dL (Not Estab.); BODY FLUID AMYLASE 24 U/L (()); BODY FLUID GLUCOSE 126 mg/dL (()); BODY FLUID LDH 86 IU/L (()); BODY FLUID PROTEIN 2.4 g/dL (())
--- NOTE | 2021-05-18 15:20 | NUR ---
TOOK OVER CARE FOR PATIENT AT 0700. PATIENT RESTING IN BED AT THIS TIME. FAMILY MEMBER PRESENT AT BEDSIDE. SPOKE TO CARDIOLOGY REGARDING PATIENT'S CASE; PER CARDIOLOGY PATIENT IS STABLE TO D/C BUT JAZMYN WOULD LIKE TO MONITOR KIDNEY FUNCTION. PATIENT RESTING IN BED. DENIES ANY NEEDS AT THIS TIME. FALL PRECAUTIONS IN PLACE AND CALL LIGHT WITHIN REACH.
[2021-05-18 16:15] VITALS: BP 134/68
[2021-05-18 20:30] VITALS: BP 110/71
[2021-05-19] VITALS (7 sets, daily range): BP systolic 107–121; BP diastolic 57–78
[2021-05-19 05:41] LABS: CALCIUM 8.9 mg/dL (8.5-10.1); CREATININE 1.9 mg/dL (0.6-1.0); POTASSIUM 4.1 mmol/L (3.5-5.1)
--- NOTE | 2021-05-19 11:11 | NUR ---
Met with patient and discussed home health care at al. patient has not rec HH in past. Reviewed HH care. Patient with no preference for HH agency and agreeable to [facility]. Referral to [facility]. Patient to have cardioversion.
--- NOTE | 2021-05-19 13:08 | PATH ---
[facility] [address] [address] PATHOLOGY RPT PROCEDURE Name: LG TREVINO Room #: 211-P ADM IN M.R.#: [id number] Admission: 05/14/21 Date of : 35 Discharge: Report #: [id number] Path Case #: [id number] Note [facility] Accession Number: [id number] TESTS RESULT FLAG UNITS REF RANGE LAB Clinician Provided Cytology Information No. of containers..01 Other (Miscellaneous) Source: PLEURAL FLUID DIAGNOSIS: 02 PLEURAL FLUID NEGATIVE FOR MALIGNANT CELLS. MESOTHELIAL CELLS AND CHRONIC INFLAMMATORY CELLS ARE PRESENT. Signed out by: 02 Queenie Srinivasan MD, Pathologist NPI- [id number] Performed by: Martien Gonzalez, Rides Attendant ([facility]) Gross description: 01 10ML, YELLOW, CLEAR /LCS 05/18/2021 1513 Local FLAG LEGEND: L-Low Normal,H-High Normal,LL-Alert Low,HH-Alert High <-Panic Low,>-Panic High,A-Abnormal,AA-Critical Abnormal Performed at: [address] [place] [address] Damon Parmar MD, [address] [place] [phone] Ondina Evangelista MD, Specimen Comment: A courtesy copy of this report has been sent to [phone] Specimen Comment: [phone] Specimen Comment: Report sent to DR. DE LA TORRE / DR HARRIS Performed at: [address], [place], [place] [id number] MD Damon Parmar MD Phone: [phone]
--- NOTE | 2021-05-20 03:10 | NUR ---
PT IS ALERT AND ORIENTED X4. LUNGS ARE CLEAR ON ROOM AIR. ABDOMEN IS SOFT BOWEL SOUNDS ACTIVE. NPO SINCE MIDNIGHT. UP TO BATHROOM VOIDED PER COMMODE WITH ASSIST X1. HEART RATE VARIES IN A FIB ON THE MONITOR. CARDIOLOGY TO SEE PT IN AM . DENIES ANY PAIN ISSUES AT THIS TIME. NO EDEMA NOTED. CALL LIGHT WITHIN REACH IF NEEDS ASSITANCE PER NURSING.
[2021-05-20 04:40] LABS: CREATININE 1.9 mg/dL (0.6-1.0); POTASSIUM 3.7 mmol/L (3.5-5.1)
[2021-05-20 04:51] VITALS: BP 114/55
[2021-05-20 09:21] VITALS: BP 114/55
--- NOTE | 2021-05-20 09:48 | TEE ---
[facility] [address] TRANSESOPHAGEAL ECHOCARDIOGRAM Name: LG TREVINO Room #: 211-P ADM IN M.R.#: [id number] Admission: 05/14/21 Attend Phys: Beto Downs MD Discharge: Date of : 35 Report #: [id number] THIS REPORT FOR: cc: Katherin Sheikh MD, Michelle R. MD Santiago, Patrick MD [facility] ~ APPROVED REPORT Study performed: 05/20/2021 08:19:59 EXAM: Comprehensive 2D, Doppler, and color-flow Echocardiogram Patient Location: In-Patient Room #: 211 Status: routine BSA: 1.74 HR: 53 bpm BP: 94/61 mmHg Rhythm: Atrial Fibrillation Other Information Study Quality: Good Indications Atrial Fibrillation Echo Enhancing Agent Indication: Rule out Shunt Agent(s) / Amount(s) Used: Agitated Saline 7 cc Procedure After obtaining informed consent, patient underwent transesophageal echo in the [employer]. Type of Sedation : Conscious Sedation Sedation was administered by Nurse. Sedation start time: 824 Case end Time: 834 Sedation was achieved intravenously with: Versed (3.5mg) Fentanyl (50mcg) Transesophageal probe was inserted and advanced into esophagus without difficulty by Jeff Suh MD. Echo enhancement indication: R/O Septal defect. Echo enhancement agent administered: Agitated Saline The MATHIEU was performed without complications. Synchronized Cardioversion acheived with 120 Joules after 1 [facility] [address] [place] [place] [address] TRANSESOPHAGEAL ECHOCARDIOGRAM Name: LG TREVINO Room #: 211-P ADM IN .R.#: [id number] Admission: 05/14/21 Attend Phys: Beto Downs MD Discharge: Date of : 35 Report #: [id number] attempt(s). Rhythm following Synchronized Cardioversion: Sinus Bradycardia Throughout the procedure, the blood pressure, pulse oximetry, cardiac rhythm, and rate were monitored. The patient tolerated the procedure without adverse effects. Recovery from conscious sedation was uneventful and vital signs were stable. Left Ventricle The left ventricle is normal size. Mild concentric left ventricular hypertrophy. Left ventricular systolic function is borderline. LVEF is 50%. Right Ventricle The right ventricle is normal size. The right ventricular systolic function is normal. Atria Left atrium is dilated. Right atrium is dilated. Aortic Valve The aortic valve is normal in structure. Trace aortic regurgitation. There is no aortic valvular stenosis. Mitral Valve The mitral valve is normal in structure. Mild mitral regurgitation. No evidence of mitral valve stenosis. Tricuspid Valve The tricuspid valve is normal in structure. Mild tricuspid regurgitation. Pulmonic Valve The pulmonary valve is normal in structure. There is no pulmonic valvular regurgitation. Great Vessels The aortic root is normal in size. Pericardium There is no pericardial effusion. <Conclusion> Consent was obtained Timeout performed After appropriate sedation esophageal probe was advanced without [facility] [address] [place] [address] TRANSESOPHAGEAL ECHOCARDIOGRAM Name: LG TREVINO Room #: 211-P ADM IN M.R.#: [id number] Admission: 05/14/21 Attend Phys: Beto Downs MD Discharge: Date of : 35 Report #: [id number] difficulty Left atrial appendage; no obvious mass or clot detected Normal left ventricle size with mild concentric hypertrophy Ejection fraction 50% Mild biatrial enlargement Normal right ventricle size/function Normal aortic valve structure and function Trace mitral valve insufficiency Mild tricuspid valve insufficiency No pericardial effusion Normal aortic root size Aorta no calcification detected Patient cardioverted to sinus rhythm after 120 J/biphasic mode Patient tolerated procedure well Twelve-lead ECG pending <ELECTRONICALLY SIGNED> By: Jeff Suh MD, FACC 05/20/21947 7 7 Jeff Suh MD, FACC /INF
--- NOTE | 2021-05-20 10:30 | EKG ---
[address] [address] ELECTROCARDIOGRAM REPORT Name: LG TREVINO Room #: 211- ADM IN M.R.#: [id number] Admission: 05/14/21 Attend Phys: Beto Downs MD Discharge: Date of : 35 Report #: [id number] [facility] Test Date: 2021-05-20 Test Time: 08:47:04 Pat Name: LG TREVINO Department: Room: 211 P Gender: F Vat House Supervisor: TREMAINE : 1935 Requested By: Jeff Suh Order Number: [id number] MD: Jeff Suh Measurements Intervals [place] Rate: 48 P: 43 NC: 211 QRS: 18 QRSD: 106 T: 34 QT: 486 QTc: 435 Interpretive Statements Sinus bradycardia RSR' in V1 or V2, right VCD or RVH Compared to ECG 05/17/2021 08:33:03 RSR' in V1 or V2 now present Atrial fibrillation no longer present Early repolarization no longer present Possible ischemia no longer present Electronically Signed On 05-20-2021 10:30:37 CDT by Jeff Suh [email or web address] <ELECTRONICALLY SIGNED> By: Jeff Suh MD, FACC 05/20/21 1030 0847 0847 Jeff Suh MD, [facility] /EPI
[2021-05-20 19:21] VITALS: BP 119/59
[2021-05-21 05:52] LABS: CALCIUM 8.7 mg/dL (8.5-10.1); CREATININE 1.4 mg/dL (0.6-1.0); POTASSIUM 3.8 mmol/L (3.5-5.1)
[2021-05-21 06:04] VITALS: BP 119/57
--- NOTE | 2021-05-21 06:15 | NUR ---
ALERT AND ORIENT TIMES FOUR. UP WITH SBA. VSS, AFEBRILE. AFIB PER MONITOR. DENIES PAIN. DROWSY POST CARDIOVERSION EARLIER IN THE DAY. SB PER MONITOR. GOOD PROGRESS TOWARDS DC GOALS. WILL CONTINUE TO MONITOR.
[2021-05-21 07:10] VITALS: BP 123/59
[2021-05-21] MEDS ORDERED: XARELTO15 MG PO (09:40)
[2021-05-21 11:30] VITALS: BP 103/49
[2021-05-21 14:06] VITALS: BP 114/55
--- NOTE | 2021-05-21 14:12 | NUR ---
Nutrition: pt admit with afib/RVR and pleural effusions. Seen for LOS. PMH: HTN, GERD, CVA, HLD. Reports stable weights. Noted 154# on admit, current 147#. Pt S/P thoracentesis however with 1Liter fluid removed. Eats ~60% of meals. States will eat better when home. Pt/ voice good understanding of low sodium diet for heart failure. Low nutrition risk.
--- NOTE | 2021-05-21 14:57 | NUR ---
PATIENT DISCHARGED HOME. TEACHING AND EDUCATION COMPLETED AT BEDSIDE WITH SPOUSE PRESENT, NO QUESTIONS OR CONCERNS VOICED. IV AND TELE REMOVED. TAKE OUT IN WHEELCHAIR BY STAFF TO PRIVATE VEHCILE WHERE WAITS.
== END 2021-05-21 15:01 | disposition home health service (06) | DRG 291 ==
LOC: ER 11:51 → EROBS 14:46 → 2N 14:46
PROVIDERS: Emergency Medicine; Hospitalist; Internal Medicine Pulmonary Disease; Nurse Practitioner; ADMIT Hospitalist; ATTEND Hospitalist
PROC: 0W993ZZ Drainage of Right Pleural Cavity, Percutaneous Approach (ICD-10-PCS; principal; 2021-05-15)
PROC: B24BZZ4 Ultrasonography of Heart with Aorta, Transesophageal (ICD-10-PCS; 2021-05-20)
PROC: 5A2204Z Restoration of Cardiac Rhythm, Single (ICD-10-PCS; 2021-05-20)
DX: I13.0 Hypertensive heart and chronic kidney disease with heart failure and stage 1 through stage 4 chronic kidney disease, or unspecified chronic kidney disease (principal); J96.00 Acute respiratory failure, unspecified whether with hypoxia or hypercapnia; I50.33 Acute on chronic diastolic (congestive) heart failure; N17.9 Acute kidney failure, unspecified; J91.8 Pleural effusion in other conditions classified elsewhere; E87.3 Alkalosis; I48.91 Unspecified atrial fibrillation; E89.0 Postprocedural hypothyroidism; Z20.822 Contact with and (suspected) exposure to COVID-19; K21.9 Gastro-esophageal reflux disease without esophagitis; E78.5 Hyperlipidemia, unspecified; R53.81 Other malaise; E53.8 Deficiency of other specified B group vitamins; M81.0 Age-related osteoporosis without current pathological fracture; I08.0 Rheumatic disorders of both mitral and aortic valves; K59.00 Constipation, unspecified; N18.2 Chronic kidney disease, stage 2 (mild); I49.5 Sick sinus syndrome; Z79.899 Other long term (current) drug therapy; Z79.01 Long term (current) use of anticoagulants; Z90.710 Acquired absence of both cervix and uterus; Z90.49 Acquired absence of other specified parts of digestive tract; Z85.3 Personal history of malignant neoplasm of breast; Z86.73 Personal history of transient ischemic attack (TIA), and cerebral infarction without residual deficits; Z88.2 Allergy status to sulfonamides; Z88.8 Allergy status to other drugs, medicaments and biological substances; Z85.850 Personal history of malignant neoplasm of thyroid; Z92.3 Personal history of irradiation
CPT/HCPCS: 10081

== ENCOUNTER → 2021-05-28 | Outpatient (CLI) | payer OTHER ==
[~2021-05-28] MED LIST changes: +CLOPIDOGREL75 MG PO; +FUROSEMIDE 20 M20 MG PO; +TRAZODONE HCL50 MG PO; +XARELTO15 MG PO; +XARELTO20 MG PO
== END ==
LOC: SJCVC 10:03
PROVIDERS: ATTEND Internal Medicine Cardiovascular Disease
DX: I49.3 Ventricular premature depolarization (principal); I48.91 Unspecified atrial fibrillation; I50.9 Heart failure, unspecified; E78.00 Pure hypercholesterolemia, unspecified; E03.9 Hypothyroidism, unspecified; I10 Essential (primary) hypertension; E78.5 Hyperlipidemia, unspecified; Z88.1 Allergy status to other antibiotic agents; Z88.2 Allergy status to sulfonamides; Z88.8 Allergy status to other drugs, medicaments and biological substances; Z79.899 Other long term (current) drug therapy

== ENCOUNTER → 2021-06-17 | Outpatient (CLI) | payer OTHER | LOC: SJCVC 14:12 | PROVIDERS: ATTEND Internal Medicine Cardiovascular Disease | DX: I48.19 Other persistent atrial fibrillation (principal); I49.5 Sick sinus syndrome; E03.9 Hypothyroidism, unspecified; I11.0 Hypertensive heart disease with heart failure; I50.9 Heart failure, unspecified; E78.5 Hyperlipidemia, unspecified; C50.919 Malignant neoplasm of unspecified site of unspecified female breast; K21.9 Gastro-esophageal reflux disease without esophagitis; Z86.73 Personal history of transient ischemic attack (TIA), and cerebral infarction without residual deficits; Z88.2 Allergy status to sulfonamides; Z88.8 Allergy status to other drugs, medicaments and biological substances; Z79.01 Long term (current) use of anticoagulants; Z79.899 Other long term (current) drug therapy; Z90.49 Acquired absence of other specified parts of digestive tract; Z90.710 Acquired absence of both cervix and uterus; Z90.11 Acquired absence of right breast and nipple; Z98.890 Other specified postprocedural states ==

== ENCOUNTER 2021-06-23 10:14 | Observation (INO) | payer OTHER ==
[~2021-06-23] VITALS: Ht 165.1 cm; Wt 67.6 kg
[2021-06-23 11:01] LABS: HEMATOCRIT 40.9 % (37.0-47.0); HEMOGLOBIN 13.3 gm/dL (12.0-15.0); MCH 30.4 pg (26.0-34.0); MCHC 32.6 g/dL (28.0-37.0); MCV 93.4 fL (80.0-100.0); RBC 4.37 mil/uL (4.20-5.00); RDW 14.7 % (10.5-14.5); WBC 7.2 thou/uL (4.0-11.0)
[2021-06-23 11:15] LABS: INR 1.18; PROTIME 12.8 Seconds (10.5-12.1)
[2021-06-23 11:19] VITALS: BP 135/64
[2021-06-23 11:46] LABS: CALCIUM 8.8 mg/dL (8.5-10.1)
--- NOTE | 2021-06-23 15:56 | NUR ---
RECEIVED REPORT FROM UTILIZATION COORDINATOR REGARDING THIS PATIENT. PT ARRIVED WITH LEFT UPPER ARM IMMOBILIZER FROM PACEMAKER. PT ON CONTINUOUS PACEMAKER AND ONLY UP TO BSC. PT AXOX4 AND ANSWERS APPROPRIATLEY. PT REPORTS MILD PAIN IN UPPER LEFT EXTREMITY DUE TO IMMOBILIZER. ADMIN PRN PAIN MEDICATION. ASSESSMENTS CHARTED. WILL CONTINUE TO MONITOR. FALL PRECAUTIONS IN PLACE AND CALL LIGHT WITHIN REACH.
[2021-06-23] MEDS ORDERED: FLECAINIDE ACET50 M2 PO (16:21)
[2021-06-23] MEDS ORDERED: TOPROL XL25 MG PO (16:21)
[2021-06-23 20:15] VITALS: BP 128/64; BP 139/74
--- NOTE | 2021-06-23 22:26 | NUR ---
PATIENT RESTING IN HER ROOM WITH AT BEDSIDE. SHE IS AAOX4. SHE HAS IMMOBILIZER IN PLACE TO LEFT ARM POST PLACEMENT OF PACEMAKER. INCISION SITE IS CDI AND MELODY. PATIENT STATES THAT SHE DOES NOT HAVE ANY PAIN IN THE AREA AT THIS TIME. SHE IS ON BEDREST AND STAFF ASSISTS HER TO BEDSIDE COMMODE. HER VITALS ARE STABLE. NO DISTRESS NOTED. WILL CONTINUE TO MONITOR.
[2021-06-24 04:45] VITALS: BP 147/85
[2021-06-24 07:30] VITALS: BP 150/90
[2021-06-24 10:27] VITALS: BP 150/91
--- NOTE | 2021-06-24 11:51 | NUR ---
Pt was A&0x4, VS stable and afebrile. Pacemaker incision looked clean, dry and intact. Pt reported no pain. Pt was taken down for Chest X-ray and then prepared for discharge. Pt recieved education and communicated understanding of education and aware of outpatient follow up appointments. No current concerns.
--- NOTE | 2021-06-26 11:47 | P ---
[facility] [place] [address] PROCEDURE REPORT Name: LG TREVINO Room #: 203-P [facility] Lyssa Temple#: [id number] Admission: 06/23/21 Attend Phys: Devyn Pittman MD Discharge: 06/24/21 Date of : 35 Report #: [id number] THIS REPORT FOR: cc: Katherin Sheikh MD, Michelle R. MD Couchonnal,Devyn Howe MD ~ DATE OF SERVICE: 06/23/2021 PROCEDURE: Pacemaker implantation. PREOPERATIVE DIAGNOSES: 1. Atrial fibrillation. 2. Sick sinus syndrome. 3. Tachycardia-bradycardia syndrome. POSTOPERATIVE DIAGNOSES: 1. Atrial fibrillation. 2. Sick sinus syndrome. 3. Tachycardia-bradycardia syndrome. DESCRIPTION OF PROCEDURE: The patient underwent informed consent. She was prepped and draped in a standard fashion. She underwent a venogram and received IV antibiotics. Next, I injected lidocaine at the incision site. Incision was made, pocket created over the prepectoral fascia. Access was obtained twice to left axillary vein using the extrathoracic approach with sheaths positioned using the modified Seldinger technique. Next, leads were positioned in the right ventricular apex, right atrial appendage, both with adequate pacing and sensing thresholds. Leads were sutured to the prepectoral fascia. Device connected, tug test performed. Pocket was irrigated with vancomycin and pocket closed in 2 layers. Surgical glue was placed to outer skin layer. There were no procedure related complications. The implanted pacemaker was a Medtronic model number W3DR01, serial number [id number]. The atrial lead was a 5076, 45 cm, serial number [id number]. The RV lead was a 5076, 52 cm, serial number [id number]. Atrial lead demonstrated P-wave 1.8 millivolts, pacing impedance 437 ohms, pacing threshold 1 volt at 0.4 milliseconds. RV lead demonstrated R waves of 9.2 millivolts, pacing impedance of 817 ohms, pacing threshold 0.5 volts at 0.4 milliseconds. Device was programmed DDDR 60-130 mode. CONCLUSION: Successful dual chamber pacemaker implantation. <ELECTRONICALLY SIGNED> By: Devyn Pittman MD 06/26/21 1147 1606 0140 Devyn Pittman MD /nt
== END 2021-06-24 12:18 | disposition home or self-care (01) ==
LOC: CATH 10:14 → 2N 11:30 → CATH 12:16 → 2N 06-24 12:18
PROVIDERS: Internal Medicine Infectious Disease; ADMIT Internal Medicine Cardiovascular Disease; ATTEND Internal Medicine Cardiovascular Disease
DX: I49.5 Sick sinus syndrome (principal); Z20.822 Contact with and (suspected) exposure to COVID-19; I11.0 Hypertensive heart disease with heart failure; E03.9 Hypothyroidism, unspecified; I48.19 Other persistent atrial fibrillation; K21.9 Gastro-esophageal reflux disease without esophagitis; I10 Essential (primary) hypertension; E78.5 Hyperlipidemia, unspecified; I50.9 Heart failure, unspecified; Z86.73 Personal history of transient ischemic attack (TIA), and cerebral infarction without residual deficits; Z79.01 Long term (current) use of anticoagulants; Z79.899 Other long term (current) drug therapy; Z85.3 Personal history of malignant neoplasm of breast
CPT/HCPCS: 62110; 62900; 70005

== ENCOUNTER → 2021-06-30 | Outpatient (CLI) | payer OTHER ==
[~2021-06-30] MED LIST changes: +FLECAINIDE ACET50 M2 PO; +TOPROL XL25 MG PO
== END ==
LOC: SJCVC 14:35
PROVIDERS: ATTEND Internal Medicine Cardiovascular Disease
DX: I45.10 Unspecified right bundle-branch block (principal); I49.5 Sick sinus syndrome; I10 Essential (primary) hypertension; I48.91 Unspecified atrial fibrillation; E78.00 Pure hypercholesterolemia, unspecified; E03.9 Hypothyroidism, unspecified; E78.5 Hyperlipidemia, unspecified; I11.0 Hypertensive heart disease with heart failure; I50.9 Heart failure, unspecified; K21.9 Gastro-esophageal reflux disease without esophagitis; Z88.2 Allergy status to sulfonamides; Z88.1 Allergy status to other antibiotic agents; Z88.8 Allergy status to other drugs, medicaments and biological substances; Z79.899 Other long term (current) drug therapy

== ENCOUNTER → 2021-08-18 | Outpatient (CLI) | payer OTHER | LOC: SJCVC 10:50 | PROVIDERS: ATTEND Internal Medicine Cardiovascular Disease | DX: R94.31 Abnormal electrocardiogram [ECG] [EKG] (principal); I49.8 Other specified cardiac arrhythmias; I49.5 Sick sinus syndrome; I48.91 Unspecified atrial fibrillation; E03.9 Hypothyroidism, unspecified; E78.5 Hyperlipidemia, unspecified; I11.0 Hypertensive heart disease with heart failure; I50.9 Heart failure, unspecified; K21.9 Gastro-esophageal reflux disease without esophagitis; Z79.899 Other long term (current) drug therapy; Z88.2 Allergy status to sulfonamides; Z88.8 Allergy status to other drugs, medicaments and biological substances ==